=== PATIENT | male | born 1985 | race African-American/Black ===

== ENCOUNTER 2017-08-24 09:57 | Emergency (ER) | payer SELFPAY ==
[2017-08-24] MEDS ORDERED: MECLIZINE HCL 25 MG TABLET PO ONE (10:21)
--- NOTE | 2017-08-24 10:23 | ER Document Report ---
ED Medical Screen (RME) - General Chief Complaint: Dizziness Stated Complaint: BLURRED VISION Time Seen by Provider: 08/24/17 10:21 Mode of Arrival: Ambulatory Information source: Patient Notes: Patient presents stating he had 2 episodes of dizziness this morning. Patient states symptoms only lasted for a few seconds and then resolved. Patient denies any chest pain headache or any pain symptoms at all. Patient denies any nausea or vomiting. Patient denies any sinus congestion. Patient states he did have an episode of blurred vision. Patient denies any symptoms at this time but is very anxious about his symptoms. Patient was recently started on blood pressure medications. I have greeted and performed a rapid initial assessment of this patient. A comprehensive ED assessment and evaluation of the patient, analysis of test results and completion of the medical decision making process will be conducted by additional ED providers. TRAVEL OUTSIDE OF THE [place] IN LAST 30 DAYS: No - Related Data Allergies/Adverse Reactions: No Known Allergies Allergy (Verified 03/09/13 09:53) Past Medical History - Past Medical History Cardiac Medical History: Reports: Hx Hypertension - states th ethe pt has had HTN but has not been placed on medication - Immunizations Hx Diphtheria, Pertussis, Tetanus Vaccination: Yes - 2009 Physical Exam - Cardiovascular Rhythm: Regular Heart sounds: S1 appreciated, S2 appreciated Murmur: No - Neurological Neuro grossly intact: Yes Orientation: Disoriented to events Kyle Coma Scale Eye Opening: Spontaneous Kyle Coma Scale Verbal: Oriented Elsa Coma Scale Motor: Obeys Commands Elsa Coma Scale Total: 15
[2017-08-24 10:24] VITALS: BP 150/102
[2017-08-24 11:01] LABS: ABSOLUTE BASOPHILS # (AUTO) 0.1 10^3/uL (0.0-0.2); ABSOLUTE EOSINOPHILS # (AUTO) 0.4 10^3/uL (0.0-0.6); ABSOLUTE LYMPHOCYTES (AUTO) 3.5 10^3/uL (0.5-4.7); ABSOLUTE MONOCYTES (AUTO) 0.9 10^3/uL (0.1-1.4); ABSOLUTE NEUT (AUTO) 3.7 10^3/uL (1.7-8.2); EOSINOPHILS % (AUTO) 4.6 % (0-6); HEMATOCRIT 42.4 % (37.9-51.0); HEMOGLOBIN 14.5 g/dL (13.5-17.0); MEAN CORPUSCULAR HEMOGLOBIN 31.7 pg (27.0-33.4); MEAN CORPUSCULAR HGB CONC 34.1 g/dL (32.0-36.0); MEAN CORPUSCULAR VOLUME 93 fl (80-97); MONOCYTES % (AUTO) 10.4 % (3-13); PLATELET COUNT 257 10^3/uL (150-450); RED BLOOD COUNT 4.56 10^6/uL (4.35-5.55); RED CELL DISTRIBUTION WIDTH 14.8 % (11.5-14.0); TOTAL CELLS COUNTED % (AUTO) 100 %; WHITE BLOOD COUNT 8.6 10^3/uL (4.0-10.5)
[2017-08-24 11:20] LABS: ALANINE AMINOTRANSFERASE 27 U/L (21-72); ALBUMIN 4.6 g/dL (3.5-5.0); ALKALINE PHOSPHATASE 63 U/L (38-126); ANION GAP 12 (5-19); ASPARTATE AMINO TRANSFERASE 31 U/L (17-59); BILIRUBIN,DIRECT 0.1 mg/dL (0.0-0.4); BILIRUBIN,TOTAL 0.2 mg/dL (0.2-1.3); BLOOD UREA NITROGEN 10 mg/dL (7-20); CALCIUM 9.1 mg/dL (8.4-10.2); CARBON DIOXIDE 22 mmol/L (22-30); CHLORIDE 109 mmol/L (98-107); GLUCOSE 86 mg/dL (75-110); POTASSIUM 4.4 mmol/L (3.6-5.0); SODIUM 142.8 mmol/L (137-145); TOTAL PROTEIN 7.3 g/dL (6.3-8.2)
--- NOTE | 2017-08-24 11:43 | ER Document Report ---
HPI - HPI Patient complains to provider of: Dizziness Onset: This morning Onset/Duration: Gone Quality of pain: No pain Pain Level: Denies Context: Patient states that he had an episode of dizziness with blurred vision this morning for just a few seconds upon standing. Patient states that the symptoms resolved and then he had a similar episode a little bit later that lasted again for just a few seconds and then resolved. Patient states that he recently just started a new blood pressure medication and is worried that he might be having problems with the blood pressure medicine. Patient presently denies any complaints. Patient denies any headache, pain symptoms, nausea, vomiting, chest pain or dyspnea. Patient states when he had the dizziness he felt off balance. Patient denies any sinus congestion symptoms. Patient denies any visual problems at this time either. Patient states his symptoms made him feel very anxious which prompted him to come in. Associated Symptoms: Other - Dizziness, now resolved. denies: Nonproductive cough, Productive cough, Fever, Headache, Rhinnorhea Exacerbated by: Denies Relieved by: Denies Similar symptoms previously: No Recently seen / treated by doctor: No - ROS ROS below otherwise negative: Yes Systems Reviewed and Negative: Yes All other systems reviewed and negative - CONSTITUTIONAL Constitutional: DENIES: Fever, Chills - EENT EENT: DENIES: Sore Throat, Ear Pain, Nasal Drainage-Clear - NEURO Neurology: REPORTS: Vision blurred, Dizzinesss / Vertigo. 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 Also had CAD Patient has suicidal ideation: No Patient has homicidal ideation: No - Past Medical History Cardiac Medical History: Reports: Hx Hypertension Renal/ Medical History: Denies: Hx Peritoneal Dialysis Surgical Hx: Negative - Immunizations Hx Diphtheria, Pertussis, Tetanus Vaccination: Yes - 2009 [facility] Provider Document - CONSTITUTIONAL Agree With Documented VS: Yes Exam Limitations: No Limitations General Appearance: WD/WN, No Apparent Distress - INFECTION CONTROL TRAVEL OUTSIDE OF THE [place] IN LAST 30 DAYS: No - HEENT HEENT: Atraumatic, Normal ENT Exam, Normocephalic - NECK Neck: Normal Inspection, Supple. negative: Lymphadenopathy-Left, Lymphadenopathy-Right - RESPIRATORY Respiratory: Breath Sounds Normal, No Respiratory Distress, Chest Non-Tender O2 Sat by Pulse Oximetry: 100 - CARDIOVASCULAR Cardiovascular: Regular Rate, Regular Rhythm, No Murmur - BACK Back: Normal Inspection. negative: CVA Tenderness-Right, CVA Tenderness-Left - MUSCULOSKELETAL/EXTREMETIES Musculoskeletal/Extremeties: CLARK PARR - NEURO Level of Consciousness: Awake, Alert, Appropriate Motor/Sensory: No Motor Deficit Notes: No focal neurologic deficit, cranial nerves grossly intact - DERM Integumentary: Warm, Dry, No Rash Course - Re-evaluation Re-evalutation: 08/24/17 11:39 Patient is feeling much better and denies any complaints at this time. Patient denies any dizziness or change in vision. Patient denies any difficulty breathing or chest pain. Patient is requesting to be discharged home. Patient does have an appointment with his primary doctor in 2 days for follow-up. - Vital Signs Vital signs: Temp Pulse Resp BP Pulse Ox 98.0 F 85 150/102 H 100 08/24/17 10:20 08/24/17 10:20 08/24/17 10:20 08/24/17 10:20 - Laboratory Result Diagrams: 08/24/17 10:40 08/24/17 10:40 Laboratory results interpreted by me: 08/24/17 08/24/17 10:40 10:40 RDW 14.8 H Chloride 109 H 08/24/17 11:40 Labs- Last Values WBC 8.6 10^3/uL (4.0-10.5) 08/24/17 10:40 RBC 4.56 10^6/uL (4.35-5.55) 08/24/17 10:40 Hgb 14.5 g/dL (13.5-17.0) 08/24/17 10:40 Hct 42.4 % (37.9-51.0) 08/24/17 10:40 MCV 93 fl (80-97) 08/24/17 10:40 MCH 31.7 pg (27.0-33.4) 08/24/17 10:40 MCHC 34.1 g/dL (32.0-36.0) 08/24/17 10:40 RDW 14.8 % (11.5-14.0) H 08/24/17 10:40 Plt Count 257 10^3/uL (150-450) 08/24/17 10:40 Seg Neutrophils % 43.0 % (42-78) 08/24/17 10:40 Lymphocytes % 41.0 % (13-45) 08/24/17 10:40 Monocytes % 10.4 % (3-13) 08/24/17 10:40 Eosinophils % 4.6 % (0-6) 08/24/17 10:40 Basophils % 1.0 % (0-2) 08/24/17 10:40 Absolute Neutrophils 3.7 10^3/uL (1.7-8.2) 08/24/17 10:40 Absolute Lymphocytes 3.5 10^3/uL (0.5-4.7) 08/24/17 10:40 Absolute Monocytes 0.9 10^3/uL (0.1-1.4) 08/24/17 10:40 Absolute Eosinophils 0.4 10^3/uL (0.0-0.6) 08/24/17 10:40 Absolute Basophils 0.1 10^3/uL (0.0-0.2) 08/24/17 10:40 Sodium 142.8 mmol/L (137-145) 08/24/17 10:40 Potassium 4.4 mmol/L (3.6-5.0) 08/24/17 10:40 Chloride 109 mmol/L (98-107) H 08/24/17 10:40 Carbon Dioxide 22 mmol/L (22-30) 08/24/17 10:40 Anion Gap 12 (5-19) 08/24/17 10:40 BUN 10 mg/dL (7-20) 08/24/17 10:40 Creatinine 0.89 mg/dL (0.52-1.25) 08/24/17 10:40 Est GFR ( Amer) > 60 (>60) 08/24/17 10:40 Est GFR (Non-Af Amer) > 60 (>60) 08/24/17 10:40 Glucose 86 mg/dL (75-110) 08/24/17 10:40 Calcium 9.1 mg/dL (8.4-10.2) 08/24/17 10:40 Total Bilirubin 0.2 mg/dL (0.2-1.3) 08/24/17 10:40 Direct Bilirubin 0.1 mg/dL (0.0-0.4) 08/24/17 10:40 Neonat Total Bilirubin Not Reportable 08/24/17 10:40 Neonat Direct Bilirubin Not Reportable 08/24/17 10:40 Neonat Indirect Bili Not Reportable 08/24/17 10:40 AST 31 U/L (17-59) 08/24/17 10:40 ALT 27 U/L (21-72) 08/24/17 10:40 Alkaline Phosphatase 63 U/L (38-126) 08/24/17 10:40 Total Protein 7.3 g/dL (6.3-8.2) 08/24/17 10:40 Albumin 4.6 g/dL (3.5-5.0) 08/24/17 10:40 Discharge - Discharge Clinical Impression: Hx of essential hypertension, Episode of dizziness Condition: Stable Disposition: HOME, SELF-CARE Instructions: Dizziness ([facility]), Meclizine ([facility]) Additional Instructions: Return immediately for any new or worsening symptoms Followup with your primary care provider, call tomorrow to make a followup appointment Monitor your blood pressure daily and keep a record of the readings to take to your primary doctor to review Prescriptions: Meclizine HCl [Antivert 25 mg Tablet] 25 mg PO ASDIR PRN #12 tablet PRN Reason: Forms: Elevated Blood Pressure, Smoking Cessation Education, Return to Work Referrals: [facility] [Provider Group] - 08/26/17
--- NOTE | 2017-08-24 15:20 | EKG REPORT ---
SEVERITY:- BORDERLINE ECG - SINUS RHYTHM PROBABLE LEFT ATRIAL ABNORMALITY BORDERLINE IVCD WITH LAD : Confirmed by: Cisco Vazquez 24-Aug-2017 15:19:45
== END 2017-08-24 11:52 | disposition home or self-care (01) ==
LOC: ER 09:57
DX: I10 Essential (primary) hypertension (principal); R42 Dizziness and giddiness; H53.8 Other visual disturbances; Z79.899 Other long term (current) drug therapy; F17.200 Nicotine dependence, unspecified, uncomplicated
CPT/HCPCS: 36415; 80053; 85025; 93005; 93010; 99284

== ENCOUNTER 2018-02-10 10:48 | Emergency (ER) | payer SELFPAY ==
--- NOTE | 2018-02-10 11:29 | ER Document Report ---
ED Medical Screen (RME) - General Mode of Arrival: Ambulatory Information source: Patient TRAVEL OUTSIDE OF THE [place] IN LAST 30 DAYS: No <AHMET LONDONO - Last Filed: 02/10/18 12:54> - General TRAVEL OUTSIDE OF THE [place] IN LAST 30 DAYS: No <GIAN WHITE - Last Filed: 02/10/18 15:02> - General Chief Complaint: Abdominal Pain Stated Complaint: STOMACH PAINS Time Seen by Provider: 02/10/18 11:28 - Related Data Allergies/Adverse Reactions: No Known Allergies Allergy (Verified 03/09/13 09:53) Past Medical History - Past Medical History Cardiac Medical History: Reports: Hx Hypertension Renal/ Medical History: Denies: Hx Peritoneal Dialysis - Immunizations Hx Diphtheria, Pertussis, Tetanus Vaccination: Yes - 2009 <GIAN WHITE - Last Filed: 02/10/18 15:02> Review of Systems <AHMET LONDONO - Last Filed: 02/10/18 12:54> <GIAN WHITE - Last Filed: 02/10/18 15:02> - Review of Systems Notes: This 32-year-old young man has pain in his right lower quadrant, has diffuse abdominal pain which has been worsening over the last few days. (GIAN WHITE) Physical Exam - Vital signs Interpretation: Hypertensive <AHMET LONDONO - Last Filed: 02/10/18 12:54> - Vital signs Vitals: Temp Pulse Resp BP Pulse Ox 98.9 F 77 16 163/107 H 98 02/10/18 10:53 02/10/18 10:53 02/10/18 10:53 02/10/18 10:53 02/10/18 10:53 Course - Laboratory Result Diagrams: 02/10/18 11:50 02/10/18 11:50 <AHMET LONDONO - Last Filed: 02/10/18 12:54> - Laboratory Result Diagrams: 02/10/18 11:50 02/10/18 13:27 <GIAN WHITE - Last Filed: 02/10/18 15:02> - Re-evaluation Re-evalutation: 02/10/18 15:01 This 32-year-old young man presents for evaluation of diffuse abdominal pain. Given that he has got diffuse abdominal pain worse in the right lower quadrant will plan for this patient to undergo laboratory evaluation will also plan for this patient to undergo brief period of observation in the emergency room and reassess as necessary. (GIAN WHITE) - Vital Signs Vital signs: Temp Pulse Resp BP Pulse Ox 98.9 F 77 16 163/107 H 98 02/10/18 10:53 02/10/18 10:53 02/10/18 10:53 02/10/18 10:53 02/10/18 10:53 - Laboratory Laboratory results interpreted by me: 02/10/18 02/10/18 11:50 13:30 RDW 15.3 H Monocytes % 13.8 H Urine Ketones TRACE H Urine Urobilinogen 4.0 H
[2018-02-10 12:04] LABS: ABSOLUTE EOSINOPHILS # (AUTO) 0.1 10^3/uL (0.0-0.6); ABSOLUTE LYMPHOCYTES (AUTO) 2.4 10^3/uL (0.5-4.7); ABSOLUTE MONOCYTES (AUTO) 0.9 10^3/uL (0.1-1.4); ABSOLUTE NEUT (AUTO) 3.3 10^3/uL (1.7-8.2); BASOPHILS % (AUTO) 0.7 % (0-2); EOSINOPHILS % (AUTO) 1.6 % (0-6); HEMATOCRIT 47.1 % (37.9-51.0); HEMOGLOBIN 16.4 g/dL (13.5-17.0); LYMPHOCYTES % (AUTO) 35.2 % (13-45); MEAN CORPUSCULAR HEMOGLOBIN 32.6 pg (27.0-33.4); MEAN CORPUSCULAR HGB CONC 34.7 g/dL (32.0-36.0); MEAN CORPUSCULAR VOLUME 94 fl (80-97); MONOCYTES % (AUTO) 13.8 % (3-13); PLATELET COUNT 246 10^3/uL (150-450); RED BLOOD COUNT 5.02 10^6/uL (4.35-5.55); RED CELL DISTRIBUTION WIDTH 15.3 % (11.5-14.0); SEGMENTED NEUTROPHILS % (AUTO) 48.7 % (42-78); TOTAL CELLS COUNTED % (AUTO) 100 %; WHITE BLOOD COUNT 6.8 10^3/uL (4.0-10.5)
--- NOTE | 2018-02-10 13:03 | ER Document Report ---
ED GI/ - General Chief Complaint: Abdominal Pain Stated Complaint: STOMACH PAINS Time Seen by Provider: 02/10/18 11:28 Mode of Arrival: Ambulatory Information source: Patient TRAVEL OUTSIDE OF THE [place] IN LAST 30 DAYS: No - HPI Patient complains to provider of: Abdominal pain Onset: Last week Timing/Duration: Gradual, Intermittent Quality of pain: Dull Severity at maximum: Moderate Severity in ED: Mild Context: denies: Bad food, Lifting, Out of the country travel, , Recent trauma Location: Other - [facility] Associated symptoms: Nausea. denies: Diarrhea, Dysuria, Fever, Radiates to back , Radiates to shoulder, Vomiting Exacerbated by: Denies Relieved by: Other - RLD POSITION Similar symptoms previously: No Recently seen / treated by doctor: No - Related Data Allergies/Adverse Reactions: No Known Allergies Allergy (Verified 03/09/13 09:53) Past Medical History - General Information source: Patient - Social History Smoking Status: Never Smoker Cigarette use (# per day): No Chew tobacco use (# tins/day): No Frequency of alcohol use: None Drug Abuse: None Lives with: Family Family History: Other - Mother of kidney failure. Also had CAD Patient has suicidal ideation: No Patient has homicidal ideation: No - Past Medical History Cardiac Medical History: Reports: Hx Hypertension Pulmonary Medical History: Reports: None EENT Medical History: Reports: None Neurological Medical History: Reports: None Endocrine Medical History: Reports: None Renal/ Medical History: Reports: None. Denies: Hx Peritoneal Dialysis Malignancy Medical History: Reports None GI Medical History: Reports: None Musculoskeletal Medical History: Reports None Psychiatric Medical History: Reports: None Surgical Hx: Negative - Immunizations Hx Diphtheria, Pertussis, Tetanus Vaccination: Yes - 2009 Review of Systems - Review of Systems Constitutional: No symptoms reported EENT: No symptoms reported Cardiovascular: No symptoms reported Respiratory: No symptoms reported Gastrointestinal: See HPI Genitourinary: No symptoms reported. denies: Burning, Dysuria, Flank pain Musculoskeletal: No symptoms reported Skin: No symptoms reported Neurological/Psychological: No symptoms reported Physical Exam - Vital signs Vitals: Temp Pulse Resp BP Pulse Ox 98.9 F 77 16 163/107 H 98 02/10/18 10:53 02/10/18 10:53 02/10/18 10:53 02/10/18 10:53 02/10/18 10:53 Interpretation: Hypertensive. No: Tachycardic, Tachypneic, Febrile - General General appearance: Appears well, Alert In distress: None - HEENT Head: Normocephalic Eyes: Normal Conjunctiva: Normal Ears: Normal Nasal: Normal Mouth/Lips: Normal Mucous membranes: Normal - Respiratory Respiratory status: No respiratory distress Breath sounds: Normal - Cardiovascular Rhythm: Regular Heart sounds: Normal auscultation - Abdominal Inspection: Normal Distension: No distension Bowel sounds: Normal - Extremities General upper extremity: Normal inspection General lower extremity: Normal inspection - Neurological Neuro grossly intact: Yes Cognition: Normal Orientation: AAOx4 - Psychological Associated symptoms: Normal affect, Normal mood - Skin Skin Temperature: Warm Skin Moisture: Dry Skin Color: Normal Skin Turgor: Elastic Course - Vital Signs Vital signs: Temp Pulse Resp BP Pulse Ox 98.1 F 80 20 150/90 H 98 02/10/18 16:51 02/10/18 16:51 02/10/18 16:51 02/10/18 16:51 02/10/18 16:51 - Laboratory Result Diagrams: 02/10/18 11:50 02/10/18 13:27 Laboratory results interpreted by me: 02/10/18 02/10/18 11:50 13:30 RDW 15.3 H Monocytes % 13.8 H Urine Ketones TRACE H Urine Urobilinogen 4.0 H Discharge - Discharge Clinical Impression: Gastritis Qualifiers: Gastritis type: unspecified gastritis Chronicity: acute Gastritis bleeding: presence of bleeding unspecified Qualified Code(s): K29.00 - Acute gastritis without bleeding Condition: Stable Disposition: HOME, SELF-CARE Instructions: Gastritis ([facility]), Prilosec (Acid Pump Inhibitor) ([facility]), Sucralfate ([facility]) Additional Instructions: BLAND DIET, AVOID SPICY FOODS. ALSO, AVOID ALL DRINKS CONTAINING CAFFEINE. TAKE PRILOSEC (OMEPRAZOLE), 20 mg DAILY. ALSO, TAKE CARAFATE (SUCRALFATE) DIRECTED. FOLLOW UP WITH YOUR PRIMARY CARE PROVIDER OR RETURN TO E.R. IF PROBLEMS. Prescriptions: Sucralfate [Carafate 1 gm Tablet] 1 gm PO ACHS #60 tablet
[2018-02-10 14:13] LABS: ALANINE AMINOTRANSFERASE 29 U/L (21-72); ALBUMIN 4.7 g/dL (3.5-5.0); ALKALINE PHOSPHATASE 69 U/L (38-126); ANION GAP 11 (5-19); ASPARTATE AMINO TRANSFERASE 39 U/L (17-59); BILIRUBIN,DIRECT 0.3 mg/dL (0.0-0.4); BILIRUBIN,TOTAL 0.8 mg/dL (0.2-1.3); BLOOD UREA NITROGEN 13 mg/dL (7-20); CARBON DIOXIDE 23 mmol/L (22-30); CHLORIDE 104 mmol/L (98-107); GLUCOSE 85 mg/dL (75-110); POTASSIUM 4.5 mmol/L (3.6-5.0)
[2018-02-10 14:34] LABS: APPEARANCE,URINE CLEAR; BILIRUBIN,URINE NEGATIVE (NEGATIVE); COLOR,URINE YELLOW; GLUCOSE, URINE NEGATIVE (NEGATIVE); KETONES,URINE TRACE mg/dL (NEGATIVE); LEUKOCYTE ESTERASE,URINE NEGATIVE (NEGATIVE); NITRITE,URINE NEGATIVE (NEGATIVE); PROTEIN,URINE NEGATIVE (NEGATIVE); URINE SPECIFIC GRAVITY 1.025
[2018-02-10 14:58] LABS: URINE AMPHETAMINES SCREEN NEGATIVE; URINE BARBITURATES SCREEN NEGATIVE; URINE BENZODIAZEPINES SCREEN NEGATIVE; URINE COCAINE SCREEN NEGATIVE; URINE MARIJUANA (THC) SCREEN UNCONFIRMED POSITIVE; URINE METHADONE SCREEN NEGATIVE; URINE PHENCYCLIDINE SCREEN NEGATIVE
--- NOTE | 2018-02-10 15:47 | RADIOLOGY REPORT (SQ) ---
EXAM DESCRIPTION: CT ABD/PELVIS WITH IV ONLY COMPLETED DATE/TIME: 02/10/2018 3:31 pm REASON FOR STUDY: query appy COMPARISON: None. TECHNIQUE: CT scan of the abdomen and pelvis performed using helical scanning technique with dynamic intravenous contrast injection. No oral contrast. Images reviewed with lung, soft tissue, and bone windows. Reconstructed coronal and sagittal MPR images reviewed. Delayed images for evaluation of the urinary system also acquired. All images stored on PACS. All CT scanners at this facility use dose modulation, iterative reconstruction, and/or weight based d osing when appropriate to reduce radiation dose to as low as reasonably achievable (ALARA). [facility]: Dose Right [facility]: CareDose [facility]: Dose Right [facility]: Teradose 4D [facility]: Harimata CONTRAST TYPE AND DOSE: contrast/concentration: Isovue 370.00 mg/ml; Total Contrast Delivered: 99.0 ml; Total Saline Delivered: 61.0 ml RENAL FUNCTION: BUN 13 creatinine 0.9 RADIATION DOSE: CT Rad equipment meets quality standard of care and radiation dose reduction techniq ues were employed. CTDIvol: 8.9 - 12.0 mGy. DLP: 1130 mGy-cm.. LIMITATIONS: None. FINDINGS: LOWER CHEST: No significant findings. No nodules or infiltrates. LIVER: Normal size. No masses. No dilated ducts. SPLEEN: Normal size. No focal lesions. PANCREAS: No masses. No significant calcifications. No adjacent inflammation or peripancreatic fluid collections. Pancreatic duct not dilated. GALLBLADDER: No identified stones by CT criteria. No inflammatory changes to suggest cholecystitis. ADRENAL GLANDS: No significant masses or asymmetry. RIGHT KIDNEY AND URETER: No solid masses. No significant calcifications. No hydronephrosis or hyd roureter. LEFT KIDNEY AND URETER: No solid masses. No significant calcifications. No hydronephrosis or hydr oureter. AORTA AND VESSELS: No aneurysm. No dissection. Renal arteries, SMA, celiac without stenosis. RETROPERITONEUM: No retroperitoneal adenopathy, hemorrhage or masses. BOWEL AND PERITONEAL CAVITY: No masses or inflammatory changes. No free fluid or peritoneal masses. APPENDIX: Normal. PELVIS: No mass. No free fluid. Normal bladder. ABDOMINAL WALL: No masses. No hernias. BONES: No significant or acute findings. OTHER: No other significant finding. IMPRESSION: NO SIGNIFICANT OR ACUTE FINDING IN THE ABDOMEN OR PELVIS ON CT SCAN WITH IV CONTRAST. TECHNICAL DOCUMENTATION: JOB ID: [id number] Quality ID # [id number]: Final reports with documentation of one or more dose reduction techniques (e.g., Au tomated exposure control, adjustment of the mA and/or kV according to patient size, use of iterative reconstruction technique) 2010 [employer]- All Rights Reserved Reading location - IP/workstation name: [email or web address]
[2018-02-10] MEDS ORDERED: LIDOCAINE 2% VISCOUS SOLN 20 ML UDCUP PO ONE (16:29)
[2018-02-10] MEDS ORDERED: METOCLOPRAMIDE HCL ORAL SOLN 10 MG/10 ML UDCUP PO ONE (16:29)
[2018-02-10] MEDS ORDERED: MAG HYDROX/AL HYDROX/SIMETH SUSP 30 ML UDCUP PO ONE (16:29)
[2018-02-10 16:53] VITALS: BP 150/90
== END 2018-02-10 17:09 | disposition home or self-care (01) ==
LOC: ER 10:48
DX: K29.00 Acute gastritis without bleeding (principal); R10.33 Periumbilical pain; R11.0 Nausea; I10 Essential (primary) hypertension
CPT/HCPCS: 99284; 36415; 83690; 85025; 80053; 81001; 80307; 74177; J3490

== ENCOUNTER 2019-07-08 17:47 | Emergency (ER) | payer SELFPAY ==
[2019-07-08] MEDS ORDERED: LIDOCAINE 2% VISCOUS SOLN 20 ML UDCUP PO ONE (18:26)
[2019-07-08] MEDS ORDERED: MAG HYDROX/AL HYDROX/SIMETH SUSP 30 ML UDCUP PO ONE (18:26)
--- NOTE | 2019-07-08 18:28 | ER Document Report ---
ED Medical Screen (RME) - General Chief Complaint: Abdominal Pain Stated Complaint: ABDOMINAL PAIN, BACK PAIN Time Seen by Provider: 07/08/19 18:21 TRAVEL OUTSIDE OF THE [place] IN LAST 30 DAYS: No - HPI Notes: 07/08/19 18:26 Patient is a 33-year-old male with a history of GERD who presents complaining of epigastric and right upper quadrant abdominal pain with intermittent lower abdominal pain associated. Patient states that this is been ongoing for the past couple weeks intermittently, but increased significantly today. He is still urinating normally and having normal bowel movements. No surgical history to his abdomen. No fever, chest pain, shortness of breath, vomiting, diarrhea. I have treated and performed a rapid initial assessment of this patient. A comprehensive ED assessment and evaluation of the patient, analysis of test results and completion of medical decision making process will be conducted by additional ED providers. PHYSICAL EXAMINATION: GENERAL: Well-appearing, well-nourished and in no acute distress. A&Ox4. Answers questions appropriately. Abdomen: Limited exam in triage, but patient does have generalized tenderness with increased to the right upper quadrant/epigastrium. - Related Data Allergies/Adverse Reactions: No Known Allergies Allergy (Verified 07/08/19 18:24) Home Medications: daily vitamins Past Medical History - Social History Frequency of alcohol use: Social Drug Abuse: None - Past Medical History Cardiac Medical History: Reports: Hx Hypertension Renal/ Medical History: Denies: Hx Peritoneal Dialysis - Immunizations Hx Diphtheria, Pertussis, Tetanus Vaccination: Yes - 2009 Physical Exam - Vital signs Vitals: Temp Pulse Resp BP Pulse Ox 97.6 F 84 20 153/133 H 96 07/08/19 18:20 07/08/19 18:20 07/08/19 18:20 07/08/19 18:20 07/08/19 18:20 Course - Vital Signs Vital signs: Temp Pulse Resp BP Pulse Ox 97.6 F 84 20 153/133 H 96 07/08/19 18:20 07/08/19 18:20 07/08/19 18:20 07/08/19 18:20 07/08/19 18:20
[2019-07-08 19:23] LABS: ABSOLUTE BASOPHILS # (AUTO) 0.1 10^3/uL (0.0-0.2); ABSOLUTE EOSINOPHILS # (AUTO) 0.1 10^3/uL (0.0-0.6); ABSOLUTE LYMPHOCYTES (AUTO) 2.7 10^3/uL (0.5-4.7); ABSOLUTE MONOCYTES (AUTO) 0.8 10^3/uL (0.1-1.4); ABSOLUTE NEUT (AUTO) 3.7 10^3/uL (1.7-8.2); BASOPHILS % (AUTO) 0.7 % (0-2); EOSINOPHILS % (AUTO) 1.4 % (0-6); HEMATOCRIT 47.2 % (37.9-51.0); HEMOGLOBIN 16.3 g/dL (13.5-17.0); LYMPHOCYTES % (AUTO) 36.9 % (13-45); MEAN CORPUSCULAR HEMOGLOBIN 31.7 pg (27.0-33.4); MEAN CORPUSCULAR HGB CONC 34.5 g/dL (32.0-36.0); MEAN CORPUSCULAR VOLUME 92 fl (80-97); MONOCYTES % (AUTO) 10.4 % (3-13); PLATELET COUNT 237 10^3/uL (150-450); RED BLOOD COUNT 5.14 10^6/uL (4.35-5.55); RED CELL DISTRIBUTION WIDTH 14.2 % (11.5-14.0); SEGMENTED NEUTROPHILS % (AUTO) 50.6 % (42-78); TOTAL CELLS COUNTED % (AUTO) 100 %; WHITE BLOOD COUNT 7.4 10^3/uL (4.0-10.5)
[2019-07-08 19:35] LABS: ALBUMIN 4.7 g/dL (3.5-5.0); ALKALINE PHOSPHATASE 78 U/L (38-126); ANION GAP 13 (5-19); ASPARTATE AMINO TRANSFERASE 35 U/L (17-59); BILIRUBIN,DIRECT 0.2 mg/dL (0.0-0.4); BILIRUBIN,TOTAL 0.7 mg/dL (0.2-1.3); BLOOD UREA NITROGEN 6 mg/dL (7-20); CALCIUM 10.9 mg/dL (8.4-10.2); CARBON DIOXIDE 26 mmol/L (22-30); CHLORIDE 97 mmol/L (98-107); GLUCOSE 94 mg/dL (75-110); POTASSIUM 3.7 mmol/L (3.6-5.0); TOTAL PROTEIN 8.1 g/dL (6.3-8.2)
--- NOTE | 2019-07-08 20:18 | RADIOLOGY REPORT (SQ) ---
EXAM DESCRIPTION: US ABDOMEN LIMITED COMPLETED DATE/TME: 07/08/2019 18:26 CLINICAL HISTORY: 33 years, Male, epigastric/ruq pain COMPARISON: None. TECHNIQUE: LIMITATIONS: None. FINDINGS: No gallstones. No evidence of gallbladder wall thickening or pericholecystic fluid. The echocardiography technologist reported a negative sonographic Bustillos sign. No evidence of biliary tree dilatation. The pancreas, liver and right kidney are unremarkable. The abdominal aorta is normal in caliber. IMPRESSION: No sonographic abnormality. copyright 2010 [employer]- All Rights Reserved
[2019-07-08] MEDS ORDERED: LIDOCAINE 2% VISCOUS SOLN 20 ML UDCUP ONE (21:22)
[2019-07-08] MEDS ORDERED: MAG HYDROX/AL HYDROX/SIMETH SUSP 30 ML UDCUP ONE (21:22)
[2019-07-08] MEDS ORDERED: PANTOPRAZOLE SODIUM 40 MG VIAL IV ONE (21:30)
[2019-07-08] MEDS ORDERED: NORMAL SALINE 1000 ML 1,000 ML IV ONE (21:31)
[2019-07-08 21:44] LABS: APPEARANCE,URINE SLIGHTLY-CLOUDY; BILIRUBIN,URINE NEGATIVE (NEGATIVE); COLOR,URINE YELLOW; GLUCOSE, URINE NEGATIVE (NEGATIVE); KETONES,URINE 20 mg/dL (NEGATIVE); LEUKOCYTE ESTERASE,URINE NEGATIVE (NEGATIVE); NITRITE,URINE NEGATIVE (NEGATIVE); PROTEIN,URINE 30 mg/dL (NEGATIVE)
[2019-07-08 22:04] LABS: URINE BARBITURATES SCREEN NEGATIVE; URINE BENZODIAZEPINES SCREEN NEGATIVE; URINE METHADONE SCREEN NEGATIVE; URINE PHENCYCLIDINE SCREEN NEGATIVE
[2019-07-08 22:21] LABS: URINE COCAINE SCREEN UNCONFIRMED POSITIVE; URINE MARIJUANA (THC) SCREEN UNCONFIRMED POSITIVE
[2019-07-08] MEDS ORDERED: DICYCLOMINE HCL INJ 20 MG/2 ML AMPULE IM ONE (23:04)
--- NOTE | 2019-07-08 23:09 | ER Document Report ---
ED General - General TRAVEL OUTSIDE OF THE [place] IN LAST 30 DAYS: No - Related Data Home Medications: daily vitamins <MANGO VARMA - Last Filed: 07/08/19 23:04> <TELMA VALLES - Last Filed: 07/09/19 04:34> - General Chief Complaint: Abdominal Pain Stated Complaint: ABDOMINAL PAIN, BACK PAIN Time Seen by Provider: 07/08/19 18:21 - HPI Notes: Mr. Valenzuela is a 33-year-old male with a chief complaint of severe abdominal pain. Patient says he has had similar discomfort in the past and was seen here in the emergency department about a year ago with no specific finding. He is continued to have intermittent pain since then but within the last 24 hours this is greatly intensified and is radiating through to his back. Associated nausea but no vomiting. Normal bowel movements. No fever or chills. No dysuria. Patient denies any prior history of abdominal surgery. States that he "used to drink a lot" although he denies any consumption of alcohol recently. He denies drug use. He is a cigarette smoker. No known allergies. No current medications. 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 (MANGO VARMA) - Related Data Allergies/Adverse Reactions: No Known Allergies Allergy (Verified 07/08/19 18:24) Past Medical History - General Information source: Patient, Relative - Social History Smoking Status: Current Every Day Smoker Frequency of alcohol use: Social Drug Abuse: None Family History: Other - Mother of kidney failure. Also had CAD Patient has suicidal ideation: No Patient has homicidal ideation: No - Past Medical History Cardiac Medical History: Reports: Hx Hypertension Renal/ Medical History: Denies: Hx Peritoneal Dialysis - Immunizations Hx Diphtheria, Pertussis, Tetanus Vaccination: Yes - 2009 <MANGO VARMA - Last Filed: 07/08/19 23:04> Review of Systems <MANGO VARMA - Last Filed: 07/08/19 23:04> - Review of Systems Notes: Constitutional: Negative for fever. HENT: Negative for sore throat. Eyes: Negative for visual changes. Cardiovascular: Negative for chest pain. Respiratory: Negative for shortness of breath. Gastrointestinal: As per HPI. Genitourinary: Negative for dysuria. Musculoskeletal: As per HPI. Skin: Negative for rash. Neurological: Negative for headaches, weakness or numbness. 10 point ROS negative except as marked above and in HPI. (MANGO VARMA) Physical Exam <MANGO VARMA - Last Filed: 07/08/19 23:04> - Vital signs Vitals: Temp Pulse Resp BP Pulse Ox 97.6 F 84 20 153/133 H 96 07/08/19 18:20 07/08/19 18:20 07/08/19 18:20 07/08/19 18:20 07/08/19 18:20 - Notes Notes: GENERAL: Well-developed well-nourished appearing in mild pain. Loud pressured speech. SKIN: Good turgor no rashes. HEAD: Normocephalic atraumatic. EYES: PERRLA. EOMI. Conjunctivae and sclerae clear. EARS: CANALS AND TMS CLEAR. NOSE: CLEAR. MOUTH: Moist mucosa. Good dentition. No stridor or edema. No drooling. NECK: Supple. No masses or thyromegaly. No adenopathy. Carotids 2+ without bruits. No JVD. BACK: Symmetrical without tenderness. CHEST: Respirations unlabored. Breath sounds clear and symmetrical. HEART: Regular rhythm. No murmur gallop or rub. ABDOMEN: Mild epigastric tenderness. Soft without masses, organomegaly or rebound. Bowel sounds normally active. No bruits. GENITALIA: Deferred. EXTREMITIES: No edema. No calf tenderness. Cap refill less than 1.5 seconds. Dorsalis pedis and posterior tibial pulses 3+ and symmetrical. NEUROLOGICAL: GCS 15. Alert and oriented x3. Normal gait. Fluent speech. Cranial nerves II through XII intact. Sensorimotor and cerebellar normal. Normal tone. PSYCHIATRIC: Anxious with pressured speech.. (MANGO VARMA) Course - Laboratory Result Diagrams: 07/08/19 18:55 07/08/19 18:55 <MANGO VARMA - Last Filed: 07/08/19 23:04> - Laboratory Result Diagrams: 07/08/19 18:55 07/08/19 18:55 - Diagnostic Test Radiology reviewed: Image reviewed, Reports reviewed - CT scan showed some gastric antrum swelling was some mild fat stranding around that area. <TELMA VALLES - Last Filed: 07/09/19 04:34> - Vital Signs Vital signs: Temp Pulse Resp BP Pulse Ox 97.6 F 84 20 153/133 H 96 07/08/19 18:20 07/08/19 18:20 07/08/19 18:20 07/08/19 18:20 07/08/19 18:20 - Laboratory Laboratory results interpreted by me: 07/08/19 07/08/19 07/08/19 18:55 18:55 21:18 RDW 14.2 H Sodium 136.3 L Chloride 97 L BUN 6 L Calcium 10.9 H Urine Protein 30 H Urine Ketones 20 H Urine Urobilinogen 2.0 H Discharge <MANGO VARMA - Last Filed: 07/08/19 23:04> <TELMA VALLES - Last Filed: 07/09/19 04:34> - Discharge Clinical Impression: Gastric ulcer, Substance abuse Condition: Stable Disposition: HOME, SELF-CARE Instructions: Abdominal Pain ([facility]), Ulcer ([facility]) Additional Instructions: Ulcer You have an ulcer. An ulcer is an erosion of the lining of the stomach or duodenum. It's a hole "burned out" by acid. Typically, this causes a burning or gnawing upper abdominal pain. Bleeding may occur from the ulcer. Ulcers may be started by alcohol or medicines, or by infection of the stomach. Antacids may be taken for pain, and may allow the ulcer to heal when taken after meals and at bedtime. More commonly, acid- suppressing drugs or ulcer- protective drugs (like Carafate) are prescribed. Avoid aspirin, ibuprofen, caffeine, tobacco, and alcohol. Repeat tests to confirm healing of the ulcer may be necessary. Some ulcers seem to be brought on by infection. If the doctor feels this is likely, you may be treated with bismuth for several weeks. If the abdominal pain worsens, or there's evidence of bleeding (such as black, tarry stool, bloody or black vomit, or lightheadedness), you should call the doctor or return immediately. Gastritis You have an inflammation of the stomach called gastritis. This commonly causes upper abdominal pain, nausea, and vomiting. In severe cases, bleeding of the stomach lining can occur. Gastritis can be caused by bacteria or viruses, alcohol, or stomach-irritating drugs. Begin with sips of clear liquids. Take increasing amounts of fluid over the first 24 hours. Then start small amounts of bland foods (such as dry toast, applesauce, mashed potato). Gradually resume your usual diet. You should take antacids every two hours until the pain has subsided. Acid-suppressing drugs may be prescribed as well. Avoid aspirin, caffeine, tobacco, and alcohol. If the abdominal pain worsens, or there is evidence of major bleeding in the stomach (such as black, tarry stool, bloody or black vomit, or lightheadedness), you should return immediately. Call the doctor if you aren't improved in 24 to 36 hours. Prescriptions: Sucralfate [Carafate 1 gm Tablet] 1 gm PO ACHS #120 tablet Lansoprazole [Prevacid 24Hr] 30 mg PO BID #60 capsule.dr Referrals: LIDIA HALEY MD [ACTIVE STAFF] - Follow up as needed
--- NOTE | 2019-07-09 02:43 | RADIOLOGY REPORT (SQ) ---
EXAM DESCRIPTION: CT ABDOMEN PELVIS WITH IV CONTRAST COMPLETED DATE/TME: 07/08/2019 00:00 CLINICAL HISTORY: epigastric pain COMPARISON: 02/10/2018 TECHNIQUE: CT of the abdomen and pelvis performed following IV administration of 103 mL of Omnipaque 350. FINDINGS: Lung Bases: The visualized lung bases are clear. Bones: No destructive bone lesions identified. Abdomen: Liver: The liver has normal size and density. No intrahepatic mass or biliary dilatation. Gallbladder: No calcified gallstones. Spleen, Pancreas, and Adrenal Glands: The spleen, pancreas, and adrenal glands are unremarkable. Kidneys: The kidneys have normal size without evidence of solid mass or hydronephrosis. Vasculature: Aortoiliac atherosclerosis. IVC. The portal vein is patent. The proximal visceral and renal arteries are patent. Stomach: Mild wall thickening and fat stranding adjacent to the gastric antrum. Mildly prominent periportal lymph node. Other: No free intraperitoneal air. No definite free fluid. Pelvis: Bladder: Urinary bladder is unremarkable. Bowel: No dilated loops of large or small bowel. Appendix: Normal appendix. Pelvis: Prostate is not enlarged. IMPRESSION: 1. Wall thickening of the gastric antrum. This could be seen with gastritis. Correlation with endoscopy or upper GI could provide additional characterization. This exam was performed according to our departmental dose-optimization program, which includes automated exposure control, adjustment of the mA and/or kV according to patient size and/or use of iterative reconstruction technique.
[2019-07-09 05:17] VITALS: BP 128/87
== END 2019-07-09 05:27 | disposition home or self-care (01) ==
LOC: ER 17:47
DX: K25.9 Gastric ulcer, unspecified as acute or chronic, without hemorrhage or perforation (principal); F19.10 Other psychoactive substance abuse, uncomplicated; R10.9 Unspecified abdominal pain; R10.816 Epigastric abdominal tenderness; R11.0 Nausea; F17.210 Nicotine dependence, cigarettes, uncomplicated; I10 Essential (primary) hypertension
CPT/HCPCS: 99284; 96372; 96361; 96374; 36415; 80307 ×3; 83690; 85025; 80053; 81001; 76705; 74177; G0480; J0500; J3490; C9113; J7030